=== PATIENT | male | born 1980 | race Caucasian/White ===

== ENCOUNTER 2022-11-25 10:41 | Inpatient (IN) | payer OTHER ==
[2022-11-25 11:27] VITALS: BMI 27.0
[2022-11-25] MEDS ORDERED: MAGNESIUM HYDROX 2400MG/30ML ORAL SUSPENSION 30 ML CUP PO PRN (12:35)
[2022-11-25] MEDS ORDERED: MAG HYDROX/AL HYDROX/SIMETH 30 ML UNIT-DOSE CUP PO PRN (12:35)
[2022-11-25] MEDS ORDERED: METHOCARBAMOL 500 MG TABLET PO PRN (12:35)
[2022-11-25] MEDS ORDERED: ONDANSETRON *ODT* 4 MG TABLET SL PRN (12:35)
[2022-11-25] MEDS ORDERED: IBUPROFEN 600 MG TABLET (FP) PO PRN (12:35)
[2022-11-25] MEDS ORDERED: BENZOCAINE/MENTHOL (CHLORASEPTIC ) LOZENGE MM PRN (12:35)
[2022-11-25] MEDS ORDERED: BISMUTH SUBSALICYLATE 262 MG/15 ML BTL PO PRN (12:35)
[2022-11-25] MEDS ORDERED: DICYCLOMINE HCL 10 MG CAPSULE PO PRN (12:35)
[2022-11-25] MEDS ORDERED: NALOXONE HCL (KLOXXADO) 8 MG SPRAY NS PRN (12:35)
[2022-11-25] MEDS ORDERED: chlordiazePOXIDE HCL 25 MG CAPSULE PO PRN (12:35)
[2022-11-25] MEDS ORDERED: guaiFENesin 600 MG TABLET.ER (FP) PO PRN (12:35)
[2022-11-25] MEDS ORDERED: NALOXONE HCL 0.4 MG/ML VIAL IM PRN (12:35)
[2022-11-25] MEDS ORDERED: ACETAMINOPHEN 325 MG TABLET (FP) PO PRN (12:35)
[2022-11-25] MEDS ORDERED: LOPERAMIDE HCL 2 MG CAPSULE PO PRN (12:35)
[2022-11-25] MEDS ORDERED: POLYETHYLENE GLYCOL (HEALTHYLAX) 3350 17 GM PACKET PO PRN (12:35)
[2022-11-25] MEDS ORDERED: hydrOXYzine PAMOATE 25 MG CAPSULE (FP) PO PRN (12:35)
[2022-11-25] MEDS ORDERED: IBUPROFEN 400 MG TABLET (FP) PO PRN (12:35)
[2022-11-25] MEDS ORDERED: BENZONATATE 200 MG CAPSULE PO PRN (12:35)
[2022-11-25] MEDS ORDERED: PRENATAL VITAMINS W/ FOLIC ACID TABLET (FP) PO SCH (12:45)
[2022-11-25 17:19] VITALS: TEMP 97.5
[2022-11-25 17:20] LABS: HEMATOCRIT 36.7 % (35.4-49); HEMOGLOBIN 13.1 GM/dL (11.7-16.9); MCH 34.1 pg (25.7-33.7); MCHC 35.6 g/dl (32.0-35.9); MEAN CELL VOLUME 95.7 fl (80-96); MEAN PLT VOLUME 7.7 fl (7.5-11.1); PLATELET COUNT 87 10^3/uL (134-434); RBC 3.83 M/mm3 (4.00-5.60); RDW 15.9 % (11.9-15.9); WHITE BLOOD COUNT 3.8 K/mm3 (4.0-10.0)
[2022-11-25] MEDS: chlordiazePOXIDE HCL 25 MG CAPSULE PO SCH ×2 (17:24→23:11)
[2022-11-25 17:57] LABS: ALBUMIN 3.5 g/dl (3.4-5.0); BLOOD UREA NITROGEN 9.8 mg/dL (7-18); CALCIUM 8.5 mg/dL (8.5-10.1)
[2022-11-25 18:00] LABS: CREATININE 0.8 mg/dL (0.55-1.3)
[2022-11-25 18:02] LABS: BILIRUBIN,TOTAL 0.9 mg/dL (0.2-1); TOT PROT 7.4 g/dl (6.4-8.2)
[2022-11-25] MEDS ORDERED: cloNIDine HCL 0.1 MG TABLET PO ONE (18:37)
[2022-11-25] MEDS ORDERED: THIAMINE HCL 100 MG TABLET (FP) PO SCH (22:00)
[2022-11-25] MEDS ORDERED: LORazepam 2 MG/ML SDV VIAL IM ONE (22:00)
[2022-11-25] MEDS ORDERED: MELATONIN 5 MG TABLETS PO SCH (22:00)
[2022-11-26 00:05] VITALS: BP 100/66; PULSE 162; RESP 16
[2022-11-26] MEDS: chlordiazePOXIDE HCL 25 MG CAPSULE PO SCH (06:20)
[2022-11-27] MEDS ORDERED: chlordiazePOXIDE HCL 25 MG CAPSULE PO SCH (05:00)
[2022-11-28] MEDS ORDERED: chlordiazePOXIDE HCL 10 MG CAPSULE PO PRN
[2022-11-28] MEDS ORDERED: chlordiazePOXIDE HCL 10 MG CAPSULE PO SCH (05:00)
[2022-11-29] MEDS ORDERED: chlordiazePOXIDE HCL 10 MG CAPSULE PO SCH (05:00)
[2022-11-30] MEDS ORDERED: chlordiazePOXIDE HCL 10 MG CAPSULE PO ONE (05:00)
== END 2022-11-25 23:55 | disposition short-term general hospital (02) | DRG 775 ==
LOC: YASAS 10:41 → Y3N 11:51
PROVIDERS: ADMIT Allergy & Immunology; ATTEND Surgery
PROC: HZ2ZZZZ Detoxification Services for Substance Abuse Treatment (ICD-10-PCS; principal; 2022-11-25)
DX: F10.230 Alcohol dependence with withdrawal, uncomplicated (principal); R56.9 Unspecified convulsions; I10 Essential (primary) hypertension
CPT/HCPCS: 36415; 80053; 82962; 85027; 86780; 87811; 93005; 93010; C9803-CS; U0003; U0005

== ENCOUNTER 2023-06-30 16:25 | Inpatient (IN) | payer OTHER ==
[2023-06-30 19:39] VITALS: BMI 26.6
[2023-06-30] MEDS ORDERED: chlordiazePOXIDE HCL 25 MG CAPSULE PO PRN (21:26)
[2023-06-30] MEDS ORDERED: LORazepam 2 MG/ML SDV VIAL IM ONE (21:30)
[2023-06-30] MEDS ORDERED: BENZONATATE 200 MG CAPSULE PO PRN (21:41)
[2023-06-30] MEDS ORDERED: POLYETHYLENE GLYCOL (HEALTHYLAX) 3350 17 GM PACKET PO PRN (21:41)
[2023-06-30] MEDS ORDERED: ONDANSETRON *ODT* 4 MG TABLET SL PRN (21:41)
[2023-06-30] MEDS ORDERED: DICYCLOMINE HCL 10 MG CAPSULE PO PRN (21:41)
[2023-06-30] MEDS ORDERED: BENZOCAINE/MENTHOL (CHLORASEPTIC ) LOZENGE MM PRN (21:41)
[2023-06-30] MEDS ORDERED: ACETAMINOPHEN 325 MG TABLET (FP) PO PRN (21:41)
[2023-06-30] MEDS ORDERED: BISMUTH SUBSALICYLATE 524 MG/30 ML PO PRN (21:41)
[2023-06-30] MEDS ORDERED: LOPERAMIDE HCL 2 MG CAPSULE PO PRN (21:41)
[2023-06-30] MEDS ORDERED: MAGNESIUM HYDROX 2400MG/30ML ORAL SUSPENSION 30 ML CUP PO PRN (21:41)
[2023-06-30] MEDS ORDERED: guaiFENesin 600 MG TABLET.ER (FP) PO PRN (21:41)
[2023-06-30] MEDS ORDERED: P-EPHED 60MG/TRIPROLIDI 2.5MG TABLET PO PRN (21:41)
[2023-06-30] MEDS ORDERED: MAG HYDROX/AL HYDROX/SIMETH 30 ML UNIT-DOSE CUP PO PRN (21:41)
[2023-06-30] MEDS ORDERED: IBUPROFEN 400 MG TABLET (FP) PO PRN (21:41)
[2023-06-30] MEDS ORDERED: IBUPROFEN 600 MG TABLET (FP) PO PRN (21:41)
[2023-06-30] MEDS ORDERED: levETIRAcetam 500 MG TABLET (FP) PO ONE (22:21)
[2023-06-30] MEDS ORDERED: chlordiazePOXIDE HCL 25 MG CAPSULE ONE (22:23)
[2023-06-30] MEDS ORDERED: MELATONIN 5 MG TABLETS ONE (22:23)
[2023-06-30] MEDS: levETIRAcetam 500 MG TABLET (FP) PO SCH (22:31)
[2023-06-30] MEDS: chlordiazePOXIDE HCL 25 MG CAPSULE PO SCH (22:32)
[2023-06-30] MEDS: METHOCARBAMOL 500 MG TABLET PO PRN (23:05)
[2023-06-30] MEDS: hydrOXYzine PAMOATE 25 MG CAPSULE (FP) PO PRN (23:05)
[2023-06-30] MEDS: MELATONIN 5 MG TABLETS PO SCH (23:05)
[2023-06-30] MEDS: THIAMINE HCL 100 MG TABLET (FP) PO SCH (23:06)
[2023-07-01] MEDS: chlordiazePOXIDE HCL 25 MG CAPSULE PO SCH ×4 (05:42→22:11)
[2023-07-01] MEDS: PRENATAL VITAMINS W/ FOLIC ACID TABLET (FP) PO SCH (10:30)
[2023-07-01] MEDS: levETIRAcetam 500 MG TABLET (FP) PO SCH ×2 (10:30→22:10)
[2023-07-01] MEDS: hydrOXYzine PAMOATE 25 MG CAPSULE (FP) PO PRN (10:30)
[2023-07-01] MEDS: METHOCARBAMOL 500 MG TABLET PO PRN (10:30)
[2023-07-01 10:36] LABS: CHLORIDE 101 mmol/L (98-107); POTASSIUM 3.4 mmol/L (3.5-5.1); SODIUM 137 mmol/L (136-145)
[2023-07-01 10:38] LABS: HEMATOCRIT 38.6 % (35.4-49); HEMOGLOBIN 13.8 GM/dL (11.7-16.9); MCH 32.4 pg (25.7-33.7); MCHC 35.6 g/dl (32.0-35.9); MEAN CELL VOLUME 90.9 fl (80-96); MEAN PLT VOLUME 8.9 fl (7.5-11.1); PLATELET COUNT 88 10^3/uL (134-434); RBC 4.25 M/mm3 (4.00-5.60); RDW 14.9 % (11.9-15.9); WHITE BLOOD COUNT 3.6 K/mm3 (4.0-10.0)
[2023-07-01 10:44] LABS: CALCIUM 8.9 mg/dL (8.5-10.1)
[2023-07-01 10:45] LABS: ALBUMIN 3.7 g/dl (3.4-5.0); ANION GAP 7 mmol/L (4-13); BLOOD UREA NITROGEN 11.3 mg/dL (7-18); CO2 29 mmol/L (21-32); GLUCOSE,RANDOM 124 mg/dL (74-106)
[2023-07-01 10:48] LABS: SGOT/AST 93 U/L (15-37); SGPT/ALT 69 U/L (13-61)
[2023-07-01 10:49] LABS: BILIRUBIN,TOTAL 1.1 mg/dL (0.2-1); TOT PROT 7.3 g/dl (6.4-8.2)
[2023-07-01 10:51] LABS: ALK PHOS 110 U/L (45-117)
[2023-07-01] MEDS: MELATONIN 5 MG TABLETS PO SCH (22:10)
[2023-07-01] MEDS: THIAMINE HCL 100 MG TABLET (FP) PO SCH (22:10)
[2023-07-02] MEDS: chlordiazePOXIDE HCL 25 MG CAPSULE PO SCH ×4 (05:46→22:09)
[2023-07-02] MEDS: PRENATAL VITAMINS W/ FOLIC ACID TABLET (FP) PO SCH (10:03)
[2023-07-02] MEDS: levETIRAcetam 500 MG TABLET (FP) PO SCH ×2 (10:28→22:09)
[2023-07-02] MEDS: METHOCARBAMOL 500 MG TABLET PO PRN (22:08)
[2023-07-02] MEDS: MELATONIN 5 MG TABLETS PO SCH (22:09)
[2023-07-02] MEDS: THIAMINE HCL 100 MG TABLET (FP) PO SCH (22:09)
[2023-07-03] MEDS ORDERED: chlordiazePOXIDE HCL 10 MG CAPSULE PO PRN
[2023-07-03] MEDS: chlordiazePOXIDE HCL 10 MG CAPSULE PO SCH ×4 (05:37→22:07)
[2023-07-03] MEDS: PRENATAL VITAMINS W/ FOLIC ACID TABLET (FP) PO SCH (10:27)
[2023-07-03] MEDS: levETIRAcetam 500 MG TABLET (FP) PO SCH ×2 (10:27→22:07)
[2023-07-03 16:03] LABS: POTASSIUM 3.6 mmol/L (3.5-5.1)
[2023-07-03 16:17] LABS: CALCIUM 9.2 mg/dL (8.5-10.1)
[2023-07-03 16:18] LABS: ALBUMIN 4.2 g/dl (3.4-5.0); BLOOD UREA NITROGEN 10.8 mg/dL (7-18)
[2023-07-03 16:22] LABS: BILIRUBIN,TOTAL 1.2 mg/dL (0.2-1); TOT PROT 7.9 g/dl (6.4-8.2)
[2023-07-03] MEDS: MELATONIN 5 MG TABLETS PO SCH (22:07)
[2023-07-03] MEDS: THIAMINE HCL 100 MG TABLET (FP) PO SCH (22:07)
[2023-07-03] MEDS: METHOCARBAMOL 500 MG TABLET PO PRN (22:07)
[2023-07-04] MEDS: chlordiazePOXIDE HCL 10 MG CAPSULE PO SCH ×2 (05:38→17:18)
[2023-07-04] MEDS: PRENATAL VITAMINS W/ FOLIC ACID TABLET (FP) PO SCH (10:27)
[2023-07-04] MEDS: levETIRAcetam 500 MG TABLET (FP) PO SCH ×2 (10:27→21:54)
[2023-07-04] MEDS: METHOCARBAMOL 500 MG TABLET PO PRN (21:54)
[2023-07-04] MEDS: hydrOXYzine PAMOATE 25 MG CAPSULE (FP) PO PRN (21:54)
[2023-07-04] MEDS: THIAMINE HCL 100 MG TABLET (FP) PO SCH (21:54)
[2023-07-04] MEDS ORDERED: MELATONIN 5 MG TABLETS PO SCH (22:00)
[2023-07-05] MEDS ORDERED: chlordiazePOXIDE HCL 10 MG CAPSULE PO ONE (05:00)
[2023-07-05 06:24] VITALS: BP 141/96; PULSE 71; RESP 18; TEMP 97.7
[2023-07-05] MEDS: PRENATAL VITAMINS W/ FOLIC ACID TABLET (FP) PO SCH (09:00)
== END 2023-07-05 08:53 | disposition home or self-care (01) | DRG 775 ==
LOC: YASAS 16:25 → Y6N 21:57
PROVIDERS: ADMIT Allergy & Immunology; ATTEND Surgery
PROC: HZ2ZZZZ Detoxification Services for Substance Abuse Treatment (ICD-10-PCS; principal; 2023-06-30)
DX: F10.230 Alcohol dependence with withdrawal, uncomplicated (principal); F10.282 Alcohol dependence with alcohol-induced sleep disorder; F10.24 Alcohol dependence with alcohol-induced mood disorder; F32.A Depression, unspecified; Z86.69 Personal history of other diseases of the nervous system and sense organs
CPT/HCPCS: 36415; 80053; 80307; 83036; 85027; 86780; 87635; 87811

== ENCOUNTER 2023-11-19 08:23 | Inpatient (IN) | payer OTHER ==
[2023-11-19 09:31] VITALS: BMI 24.9
[2023-11-19] MEDS ORDERED: chlordiazePOXIDE HCL 25 MG CAPSULE PO PRN (10:01)
[2023-11-19] MEDS ORDERED: IBUPROFEN 400 MG TABLET (FP) PO PRN (10:04)
[2023-11-19] MEDS ORDERED: MAGNESIUM HYDROX 2400MG/30ML ORAL SUSPENSION 30 ML CUP PO PRN (10:04)
[2023-11-19] MEDS ORDERED: MAG HYDROX/AL HYDROX/SIMETH 30 ML UNIT-DOSE CUP PO PRN (10:04)
[2023-11-19] MEDS ORDERED: guaiFENesin 600 MG TABLET.ER (FP) PO PRN (10:04)
[2023-11-19] MEDS ORDERED: BENZONATATE 200 MG CAPSULE PO PRN (10:04)
[2023-11-19] MEDS ORDERED: ACETAMINOPHEN 325 MG TABLET (FP) PO PRN (10:04)
[2023-11-19] MEDS ORDERED: POLYETHYLENE GLYCOL (HEALTHYLAX) 3350 17 GM PACKET PO PRN (10:04)
[2023-11-19] MEDS ORDERED: P-EPHED 60MG/TRIPROLIDI 2.5MG TABLET PO PRN (10:04)
[2023-11-19] MEDS ORDERED: BISMUTH SUBSALICYLATE 262 MG/15 ML BTL PO PRN (10:04)
[2023-11-19] MEDS ORDERED: IBUPROFEN 600 MG TABLET (FP) PO PRN (10:04)
[2023-11-19] MEDS ORDERED: DICYCLOMINE HCL 10 MG CAPSULE PO PRN (10:04)
[2023-11-19] MEDS ORDERED: LOPERAMIDE HCL 2 MG CAPSULE PO PRN (10:04)
[2023-11-19] MEDS ORDERED: BENZOCAINE/MENTHOL (CHLORASEPTIC ) LOZENGE MM PRN (10:04)
[2023-11-19] MEDS ORDERED: chlordiazePOXIDE HCL 25 MG CAPSULE ONE (10:17)
[2023-11-19] MEDS ORDERED: levETIRAcetam 500 MG TABLET (FP) PO ONE (10:17)
[2023-11-19] MEDS ORDERED: METOPROLOL TARTRATE 25 MG TABLET (FP) ONE (10:17)
[2023-11-19] MEDS: METOPROLOL TARTRATE 25 MG TABLET (FP) PO ONE (10:21)
[2023-11-19] MEDS: levETIRAcetam 500 MG TABLET (FP) PO SCH (10:21)
[2023-11-19] MEDS: chlordiazePOXIDE HCL 25 MG CAPSULE PO ONE ×3 (10:21→19:27)
[2023-11-19] MEDS: METHOCARBAMOL 500 MG TABLET PO PRN (11:39)
[2023-11-19] MEDS: hydrOXYzine PAMOATE 25 MG CAPSULE (FP) PO PRN (11:39)
[2023-11-19] MEDS: MELATONIN 5 MG TABLETS PO SCH (22:59)
[2023-11-19] MEDS: THIAMINE HCL 100 MG TABLET (FP) PO SCH (22:59)
[2023-11-19] MEDS: chlordiazePOXIDE HCL 25 MG CAPSULE PO SCH (22:59)
[2023-11-20] MEDS: ONDANSETRON *ODT* 4 MG TABLET SL PRN (06:13)
[2023-11-20] MEDS: PRENATAL VITAMINS W/ FOLIC ACID TABLET (FP) PO SCH (10:54)
[2023-11-20 14:58] LABS: POTASSIUM 3.5 mmol/L (3.5-5.1)
[2023-11-20 15:04] LABS: CREATININE 0.9 mg/dL (0.55-1.3)
[2023-11-20 15:06] LABS: BILIRUBIN,TOTAL 1.5 mg/dL (0.2-1); TOT PROT 7.7 g/dl (6.4-8.2)
[2023-11-20 15:09] LABS: HEMATOCRIT 40.7 % (35.4-49); HEMOGLOBIN 14.5 GM/dL (11.7-16.9); MCH 33.6 pg (25.7-33.7); MCHC 35.7 g/dl (32.0-35.9); MEAN CELL VOLUME 94.1 fl (80-96); MEAN PLT VOLUME 8.6 fl (7.5-11.1); RBC 4.32 M/mm3 (4.00-5.60); RDW 16.8 % (11.9-15.9); WHITE BLOOD COUNT 3.4 K/mm3 (4.0-10.0)
[2023-11-20 15:11] LABS: PLATELET COUNT 31 10^3/uL (134-434)
[2023-11-20] MEDS ORDERED: LORazepam 1 MG TABLET PO PRN (15:31)
[2023-11-20] MEDS ORDERED: LORazepam 2 MG TABLET PO SCH (17:00)
[2023-11-20] MEDS: LORazepam 1 MG TABLET PO SCH (17:14)
[2023-11-20 21:06] VITALS: BP 122/83; PULSE 103; RESP 18; TEMP 97.9
[2023-11-21] MEDS ORDERED: LORazepam 1 MG TABLET PO SCH (05:00)
[2023-11-21] MEDS ORDERED: chlordiazePOXIDE HCL 25 MG CAPSULE PO SCH (05:00)
[2023-11-22] MEDS ORDERED: chlordiazePOXIDE HCL 10 MG CAPSULE PO PRN
[2023-11-22] MEDS ORDERED: LORazepam 0.5 MG TABLET PO PRN
[2023-11-22] MEDS ORDERED: LORazepam 0.5 MG TABLET PO SCH (05:00)
[2023-11-22] MEDS ORDERED: chlordiazePOXIDE HCL 10 MG CAPSULE PO SCH (05:00)
[2023-11-23] MEDS ORDERED: chlordiazePOXIDE HCL 10 MG CAPSULE PO SCH (05:00)
[2023-11-23] MEDS ORDERED: LORazepam 0.5 MG TABLET PO ONE (05:00)
[2023-11-24] MEDS ORDERED: chlordiazePOXIDE HCL 10 MG CAPSULE PO ONE (05:00)
== END 2023-11-20 23:40 | disposition left against medical advice (07) | DRG 770 ==
LOC: YASAS 08:23 → Y6N 10:29
PROVIDERS: ADMIT Allergy & Immunology; ATTEND Surgery
PROC: HZ2ZZZZ Detoxification Services for Substance Abuse Treatment (ICD-10-PCS; principal; 2023-11-19)
DX: F10.230 Alcohol dependence with withdrawal, uncomplicated (principal); G40.909 Epilepsy, unspecified, not intractable, without status epilepticus
CPT/HCPCS: 36415; 80053; 80305; 85027; 86780; Q0162